=== PATIENT | female | born 1965 | race Caucasian/White ===

== ENCOUNTER → 2020-12-16 | Outpatient (CLI) | payer BC, OTHER | LOC: SLEEP 09:52 | DX: R29.818 Other symptoms and signs involving the nervous system (principal) | CPT/HCPCS: 95810 ==

== ENCOUNTER → 2021-06-12 | Outpatient (CLI) | payer BC | LOC: RAD 10:02 | DX: M54.50 Low back pain, unspecified (principal); M51.36 Other intervertebral disc degeneration, lumbar region | CPT/HCPCS: 72110; 73522 ==

== ENCOUNTER → 2021-06-12 | Outpatient (CLI) | payer BC | LOC: EXRD 05-22 10:15 | DX: K76.0 Fatty (change of) liver, not elsewhere classified (principal); Z90.49 Acquired absence of other specified parts of digestive tract | CPT/HCPCS: 76700 ==

== ENCOUNTER → 2021-07-09 | Outpatient (CLI) | payer BC | LOC: KOH-I 14:41 | DX: M51.36 Other intervertebral disc degeneration, lumbar region (principal); M51.25 Other intervertebral disc displacement, thoracolumbar region | CPT/HCPCS: 72148 ==

== ENCOUNTER 2021-09-16 11:17 | Emergency (ER) | payer BC | END 2021-09-16 12:31 | disposition home or self-care (01) | LOC: ER1 11:17 | DX: M54.50 Low back pain, unspecified (principal); I10 Essential (primary) hypertension; E11.9 Type 2 diabetes mellitus without complications | CPT/HCPCS: 96374; 96375; 99283; J1885; J2360 ==

== ENCOUNTER → 2022-02-12 | Outpatient (CLI) | payer BC | LOC: EXRD 11-29 09:45 | DX: K76.0 Fatty (change of) liver, not elsewhere classified (principal) | CPT/HCPCS: 76700 ==